=== PATIENT | male | born 1960 | race Caucasian/White ===

== ENCOUNTER 2021-03-22 15:17 | Outpatient (REF) | payer OTHER, SELFPAY ==
[2021-03-22 19:07] LABS: Hemoglobin A1C 5.9 % (<5.7)
[2021-03-22 19:32] LABS: ALT 22 U/L (16-63); AST 16 U/L (15-37); Alkaline Phosphatase 89 U/L (46-116); Anion Gap 9.8 mmol/L (3-11); BUN 15 mg/dL (7-18); Bilirubin, Total 0.7 mg/dL (0.2-1.0); CO2 26.2 mmol/L (21.0-32.0); Calcium 9.2 mg/dL (8.5-10.1); Calculated LDL 136 mg/dL (<100); Chloride 106 mmol/L (98-107); Cholesterol 197 mg/dL (<200); Glucose 114 mg/dL (74-106); HDL Cholesterol 38 mg/dL (40-60); Sodium 142 mmol/L (136-145); Total Protein 6.9 g/dL (6.4-8.2); Triglyceride 115 mg/dL (<150)
== END 2021-03-22 15:18 | disposition home or self-care (01) ==
LOC: LBN 15:17
PROVIDERS: PCP Nurse Practitioner Family; Visit Provider Nurse Practitioner Family
DX: Z00.00 Encounter for general adult medical examination without abnormal findings (principal); Z13.228 Encounter for screening for other metabolic disorders; Z13.1 Encounter for screening for diabetes mellitus; Z13.220 Encounter for screening for lipoid disorders
CPT/HCPCS: 80053; 80061; 83036

== ENCOUNTER 2022-05-01 04:03 | Outpatient (CLI) | payer OTHER, SELFPAY ==
[2022-05-01 17:15] LABS: Anion Gap 8.3 mmol/L (3-11); BUN 18 mg/dL (7-18); CO2 28.7 mmol/L (21.0-32.0); Calcium 9.2 mg/dL (8.5-10.1); Chloride 104 mmol/L (98-107); Glucose 117 mg/dL (74-106); Potassium 3.8 mmol/L (3.5-5.1); Sodium 141 mmol/L (136-145)
[2022-05-01 22:12] LABS: PSA, Screening 0.9 ng/mL (<=4.5)
== END 2022-05-01 04:04 | disposition home or self-care (01) ==
LOC: LBO 04:03
PROVIDERS: PCP Nurse Practitioner; Visit Provider Nurse Practitioner
DX: Z12.5 Encounter for screening for malignant neoplasm of prostate (principal); I10 Essential (primary) hypertension
CPT/HCPCS: 36415; 80048; 84153

== ENCOUNTER 2022-10-18 12:42 | Day surgery (SDC) | payer OTHER, SELFPAY ==
--- NOTE | 2022-10-18 11:21 | W.PM.DSUDISC ---
Date of service: 10/18/22 Time of Service: 14:45 Discharge Plan Disposition Patient Disposition: Home Condition: Good Discharge Details Reason For Visit: colonoscopy Attending Provider: Norberto Lopes Primary Care Provider: Tierra Soler Home Meds and New Rx's Prescriptions: Continued hydrochlorothiazide 12.5 mg tablet 12.5 mg PO DAILY Qty: 90 3RF lisinopril 40 mg tablet 40 mg PO DAILY Qty: 90 0RF Discharge Instructions Instructions: Diverticulosis (DC), Diverticulosis Diet (GEN) Additional Instructions: 1. If tolerated, consume a soft, low fiber diet for 1-2 days. 2[address] Do not drive, drink alcohol, operate machinery, make critical decisions, or do activities that require coordination or balance for 24 hours. 3. Because air was put into your colon during the procedure, expelling air from your rectum (passing gas or farting) is normal. 4. You may not have a bowel movement for 1-3 days because of the colonoscopy prep. This is normal. 5. Go directly to the emergency room if you notice any of the following: Develop chills (warm to touch), or if you have a thermometer and your temperature is above 101 Difficulty breathing or difficultly swallowing Persistent vomiting Severe abdominal pain, other than gas cramps Severe chest pain Black, tarry stools Any bleeding ? exceeding one tablespoon 6. Call your physician if the site where your intravenous was started becomes red, swollen, painful, and warm to touch. 7. Your physician has reviewed your pre-procedure medications. Please continue to take those medications as previously ordered. You will be given specific information/education regarding any changes to your medications before leaving. Activity:: Activity as Tolerated Diet:: As Tolerated Discharge Orders Discharge Orders: Discharge Order (Routine); Ordered 10/18/22 Ordered By: Norberto Lopes DS: Diagnosis Discharge Diagnosis (1) Screening for colon cancer: Status: Acute Asessment and Plan: De, your colonoscopy went just fine. You tolerated the procedure very well. You have some mild internal hemorrhoids. You also had some inflammation on your ileocecal valve. I do see this from time to time probably as a result of the bowel prep. I did perform some biopsies, and I will notify you when I have those results. In addition to that, you had a fair amount of sigmoid diverticulosis. This is a common finding in most patients your age. I would encourage you to have a high-fiber diet, stay well-hydrated, and try to avoid the symptoms of constipation
--- NOTE | 2022-10-18 11:22 | COLE_ITS ---
Date of service: 10/18/22 Time of Service: 14:46 Colonoscopy Report Date of procedure: 10/18/22 Pre-op diagnosis general: Screening colonoscopy Post-op diagnosis procedure note: other (Diverticulosis, inflammation of the ileocecal valve) Procedure: Colonoscopy With biopsy Surgeon: Norberto Lopes Anesthesia Type: General LMA/ETT Estimated blood loss (mL): 10 Pathology: other (Biopsies of the ileocecal valve) Complications: None Disposition: same day Indications: De is a 62-year-old male here for his first screening colonoscopy Prep: Miralax/Dulcolax Procedure Start Time: 14:16 Procedure End Time: 14:37 Retraction Time: 15 Findings: Mild to moderate sigmoid diverticulosis, inflammation of the ileocecal valve. Procedure Description: After the induction of monitored anesthetic care, and with the patient in left lateral decubitus position, I began by performing an external anorectal exam.? Perineum and skin were normal, as was the anal verge.? There was evidence of external hemorrhoids.? Next, I performed a digital rectal exam.? I did not appreciate any abnormal findings.? Next, I advanced a colonoscope into the rectal vault.? I performed retroflexion.? There were grade 1 internal hemorrhoids..? Using insufflation, I then advanced the colonoscope beyond the rectal folds and into the sigmoid colon before advancing towards the cecum.? There was sigmoid diverticulosis extending from approximately 20 cm to appr oximately 35 cm from the anal verge. The quality of the prep was excellent.? The scope was noted to be in the cecum by identification of the ileocecal valve and appendiceal orifice.? There was some inflammatory changes on the upper side of the ileocecal valve, immediately adjacent to the orifice of the terminal ileum. I performed some biopsies here. There was no discrete polyp. Based on the anatomy, I do not think that this could be elevated and completely excised endoscopically. I then began withdrawing the colonoscope using repeated irrigation as necessary for full evaluation of the colonic mucosa. ?Once the scope was withdrawn to the level of the rectum, great care was taken to examine portions of the rectal folds.? Finally, the scope was withdrawn and the patient was brought to the same-day surgery recovery unit as the anesthetic wore off. ?The findings and instructions were shared with the patient prior to discharge. No
[2022-10-18 12:56] VITALS: BP 116/82; PULSE 52; RESP 16; TEMP 36.8; O2SAT 100
[2022-10-18] MEDS: Lactated Ringers 1,000 ML 80 ML IV (13:25)
--- NOTE | 2022-10-18 13:41 | W.ANESPRE ---
General Info Date of Service Date Performed: 10/18/22 Height: 5 ft 10 in Weight: 70.307 kg Body Mass Index (BMI): 22.2 Surgical Procedure: Operation Date: 10/18/22 13:50 Proposed Procedure Side Surgeon p Colonoscopy Norberto Lopes MD Meds Allergies and Home Medications Allergies Allergy/AdvReac Type Severity Reaction Status Date / Time No Known Allergies Allergy Unverified 10/18/22 13:12 Home Medication Medication Instructions Recorded lisinopril 40 mg tablet 40 mg PO DAILY #90 tabs 06/18/22 hydrochlorothiazide 12.5 mg tablet 12.5 mg PO DAILY #90 tabs 07/10/22 Current Visit Medications: Current Medications Generic Name Dose Route Start Last Admin Trade Name Freq PRN Reason Stop Dose Admin Ringer's Solution 1,000 mls @ 80 mls/hr 10/18/22 06:00 10/18/22 13:25 IV 11/16/22 23:59 80 mls/hr INFUSION SYLVIE Administration IV Miscellaneous Supplies 1 each 10/18/22 06:00 Iv Access IV 11/16/22 23:59 DIRECTED SYLVIE Sodium Chloride 0 ml 10/18/22 06:00 Normal Saline Flush 10 Ml Syr IV 11/16/22 23:59 PRN PRN Sodium Chloride 0 ml 10/18/22 06:00 Normal Saline 10 Ml Vial IJ 11/16/22 23:59 DIRECTED PRN Sterile Water 0 ml 10/18/22 06:00 Water,Injection,Sterile 10 Ml Vial IJ 11/16/22 23:59 DIRECTED PRN PFSH Active Problems Active Problems: Problem Status Onset Code Screening for colon cancer Z12.11 Elevated blood pressure reading R03.0 Prediabetes R73.03 Family dysfunction Z63.9 Hypertension I10 COVID U07.1 Medical History Medical History Closed fracture of base of distal phalanx of finger (~11/16/05) Tendinopathy of right rotator cuff (~11/08/10) Tendonitis of left rotator cuff (~10/15/08) traumatic Surgical History Surgical History Hx of arthroscopic knee surgery S/P right inguinal herniorrhaphy (~07/22/08) With Marlex Mesh Tobacco Smoking/Tobacco Use Status: Current every day Tobacco Type: cigarettes Smoking cigarettes per day: 1 Passive smoking exposure: Yes Second hand exposure: Yes Alcohol Alcohol Intake: never Substance Use Substance use: Daily Substance use type: marijuana Details: last use of marijuana this am, 10/18/22 Vital Signs and Lab Results Vital Signs Most Recent Vital Signs in EMR: Most Recent Vital Signs Temp Pulse Resp BP Pulse Ox 36.8 C 52 L 16 116/82 100 10/18/22 12:56 10/18/22 12:56 10/18/22 12:56 10/18/22 12:56 10/18/22 12:56 Lab Results Blood Type / Crossmatch: No Data to Display Complete Blood Count: No Data to Display Complete Metabolic Panel: No Data to Display Liver Function Panel: No Data to Display Coagulation Panel: No Data to Display Cardiac Panel: No Data to Display Arterial Blood Gas: No Data to Display Venous Blood Gas: No Data to Display Pancreas Panel: No Data to Display Thyroid Panel: No Data to Display Infectious Disease: No Data to Display Blood Cultures: No Data to Display Toxicology Panel: No Data to Display Anesthesia Assessment and Plan Anesthesia History Personal History: No History of Anesthesia Complications Family History: No Family History of Anesthesia Complications Exercise Tolerance Exercise Tolerance: Metabolic Equivalents>4 Pertinent Negatives Pertinent Negatives: No Symptoms of GERD, No Major Cardiovascular Symptoms or Complaints, No Major Pulmonary Symptoms or Complaints and No History of CVA/TIA Cardiac & Pulmonary Exam Cardiac Exam: Normal S1/S2 Heart Sounds Pulmonary Exam: Clear Bilateral Breath Sounds Implantable Cardiac Device Does patient have a Pacemaker or an ICD?: No Airway Exam Known Difficult Airway: No Mallampati Class: 2 Mouth Opening: Normal (> 3cm) Thyromental Distance: Greater than 3 cm Neck Range of Motion: Full ROM Neck Circumference: Normal Teeth Condition: Normal Dentition ASA Classification ASA Score: ASA 2 Emergency Case?: No NPO Status NPO Status: NPO Clears >2 hours, Solids >8 hours Anesthesia Plan Resuscitation Status: Full Code Anesthesia Technique: General Anesthesia Airway Planned: Natural Airway Monitors Used: Standard Monitors
[2022-10-18 14:07] VITALS: BMI 22.2
--- NOTE | 2022-10-18 14:30 | BOWEL_PTH ---
PATIENT: De Reece LOC: [facility] U#:[id number] AGE/SX: 62/M ROOM: RE10/18/[address]: Norberto Lopes MD : 1960 BED: DIS: 10/18/2022 SPEC #: [id number] RECD: 10/18/22 18:23 STATUS: [place] REQ #: [id number] LILLIAN: 10/18/22 14:[address]: Norberto Lopes DEPT: Surgical Specimen RECD BY: Rose Quinteros ENTERED: 10/18/22 18:24 SP TYPE: Bowel OTHR DR: Tierra Soler, BENY Tissues: 1 - BIOPSY BOWEL Procedures: GROSS AND MICRO LEVEL 4 Comments: [id number]
[2022-10-18 14:43] VITALS: BP 111/72; PULSE 46; RESP 15; TEMP 36.5; O2SAT 97
[2022-10-18 15:00] VITALS: BP 115/76; PULSE 42; RESP 16; TEMP 36.7; O2SAT 99
--- NOTE | 2022-10-18 16:23 | W.ANESPOSTOP ---
Postoperative Evaluation Date, Time and Location Date Performed: 10/18/22 Time Performed: 15:05 Patient Location: Day Surgery Unit Vital Signs Most Recent Imported Vital Signs: Most Recent Vital Signs Temp Pulse Resp BP Pulse Ox 36.7 C 42 L 16 115/76 99 10/18/22 15:00 10/18/22 15:00 10/18/22 15:00 10/18/22 15:00 10/18/22 15:00 Pain Score Most Recent Pain Score: Most Recent Pain Score Pain Level 0 10/18/22 15:00 Assessment Mental Status: Awake (Alert & Oriented to Patient Baseline) Airway and Respiratory Function: Patent airway with normal (patient baseline) respiratory exam Cardiovascular Function: Hemodynamically Stable Hydration Status: Adequately Hydrated Nausea & Vomiting: No Nausea or Vomiting Pain: Pt. Denies Any Pain Peripheral Nerve Block: Patient did not receive a nerve block
== END 2022-10-18 12:43 | disposition home or self-care (01) ==
PROVIDERS: PCP Nurse Practitioner Family; Visit Provider Surgery
PROC: 0DJD8ZZ Inspection of Lower Intestinal Tract, Via Natural or Artificial Opening Endoscopic (ICD-10-PCS; CPT 45378; principal; 2022-10-18 13:45)
DX: Z12.11 Encounter for screening for malignant neoplasm of colon (principal); K57.30 Diverticulosis of large intestine without perforation or abscess without bleeding; K52.9 Noninfective gastroenteritis and colitis, unspecified; K63.89 Other specified diseases of intestine
CPT/HCPCS: 45380; 88305

== ENCOUNTER 2023-02-25 09:24 | Outpatient (CLI) | payer OTHER, SELFPAY ==
--- NOTE | 2023-02-25 09:15 | DI.RAD_ITS ---
Exam(s) XR KNEE RT 3V AP,LAT,VIKA EXAM: XR KNEE RT 3V AP,LAT,VIKA CLINICAL HISTORY: R knee pain. TECHNIQUE: 2D digital imaging was performed of the right knee. Three views obtained. AP, lateral an d PA tunnel views were obtained. COMPARISON: No exams were available for comparison FINDINGS: BONES: No acute fracture is present. No bony destructive lesion is seen. JOINTS: There is narrowing of the medial femoral tibial joint. Periarticular spurring is seen in the medial femoral tibial and patellofemoral joints. No joint effusion is seen. SOFT TISSUE: Normal. IMPRESSION: Mild degenerative changes of the right knee. DATA REPOSITORY: RADIATION DOSE DELIVERED:
== END 2023-02-25 09:25 | disposition home or self-care (01) ==
LOC: DIORS 09:25
PROVIDERS: PCP Nurse Practitioner Family; Referring Provider Nurse Practitioner Family; Visit Provider Physician Assistant
DX: M25.561 Pain in right knee (principal)
CPT/HCPCS: 73562

== ENCOUNTER 2023-05-31 16:58 | Emergency (ER) | payer OTHER, SELFPAY ==
[2023-05-31 17:25] VITALS: BP 139/88; PULSE 63; RESP 20; TEMP 37; O2SAT 97
--- NOTE | 2023-05-31 18:08 | W.ED.GENAD ---
Discharge Plan Disposition Patient Disposition: Home Condition: Stable Discharge Details Clinical Impression: Laceration of left hand Primary Care Provider: Tierra Soler ED Provider: Balta Gutierrez Home Meds and New Rx's Prescriptions: Continued hydrochlorothiazide 12.5 mg tablet 12.5 mg PO DAILY Qty: 90 3RF lisinopril 40 mg tablet 40 mg PO DAILY Qty: 90 3RF Discharge Instructions Instructions: Laceration (ED) Additional Instructions: the sutures should be removed in 7-10 days return to the emergency department sooner if signs of infection develop such as spreading redness or yellow/white discharge Medical Decision Making 63 yo male comes in with left pinky injury. He was holding a stone and it slipped and he pulled his hand back causing a left anterior laceration on the fat pad of the finger. No falls or other injuries. Has a 1.5cm laceration that runs vertically up the finger, full rom of the finger, no bony tenderness, intact sensation and cap refill. Given he did not have the finger get crushed and has no bony tenderness do not feel xrays indicated. will close with sutures. closed the wound without complications after irrigation, 3 sutures total, will have him return in 7-10 days for suture removal Differential Diagnosis Differential Diagnosis: laceration, abrasion HPI General Mode of arrival: ambulatory. Date/Time Provider Initiated Documentation: 05/31/23 17:13. Limitations to Documentation: no limitations. Information obtained by: patient. History of Present Illness 63 year old M presents to the emergency department with the chief complaint of left pinky injury, described as mild, Patient started experiencing this hour(s) (4) and it has been constant. No relieving factors improve symptom(s), No exacerbating factors reported . Patient notes no other symptoms.. Patient did receive the following treatments prior to arrival, none Related Data Home Medications Medication Instructions Recorded Confirmed hydrochlorothiazide 12.5 mg tablet 12.5 mg PO DAILY #90 tabs 07/10/22 05/31/23 lisinopril 40 mg tablet 40 mg PO DAILY #90 tabs 11/01/22 05/31/23 Previous Rx's Medication Instructions Recorded hydrochlorothiazide 12.5 mg tablet 12.5 mg PO DAILY #90 tabs 07/10/22 lisinopril 40 mg tablet 40 mg PO DAILY #90 tabs 11/01/22 Allergies Allergy/AdvReac Type Severity Reaction Status Date / Time No Known Allergies Allergy Unverified 04/30/23 15:39 General Stated Complaint: Orthopedic CARLA: 5 Review of Systems All systems reviewed & are unremarkable except as noted in HPI and below Constitutional Constitutional: Denies chills, Denies fever(s) and Denies weakness Cardiovascular Cardiovascular: Denies chest pain and Denies dyspnea Respiratory Respiratory: Denies cough and Denies dyspnea Gastrointestinal Gastrointestinal: Denies abdominal pain, Denies nausea and Denies vomiting Musculoskeletal Musculoskeletal: Denies joint swelling Neurologic Neurologic: Denies weakness PFSH All Active Problems (Updated 05/31/23 @ 18:42 by Balta Gutierrez MD) Laceration of left hand (Acute) Primary osteoarthritis of right knee (Acute) Prediabetes (Acute) Hypertension (Chronic) Medical History (Updated 05/31/23 @ 18:42 by Balta Gutierrez MD) Closed fracture of base of distal phalanx of finger (~11/16/05) COVID Family dysfunction Screening for colon cancer Tendinopathy of right rotator cuff (~11/08/10) Tendonitis of left rotator cuff (~10/15/08) traumatic Surgical History (Updated 11/01/22 @ 10:54 by Gemini Sargent RN) History of colonoscopy (~10/2022) Hx of arthroscopic knee surgery S/P right inguinal herniorrhaphy (~07/22/08) With Marlex Mesh Family History (Updated 01/25/21 @ 14:24 by Kiara Kunz) Mother , 87 No problems noted. Father , 90 No problems noted. Social History Smoking/Tobacco Use Status: Current-Occasional Tobacco Type: cigarettes Tobacco: How many years used: 10 Second Hand Exposure: Yes Smoking risk assessment performed?: Yes Alcohol Intake: never Drug use: Daily Substance use type: marijuana Details: last use of marijuana this am, 10/18/22 Caregiver/Support person: No Household members: spouse Housing: house Communication Needs: None Do you need help understanding health information?: Rarely Pets and animals: Yes Pets and animals: dog(s) Sexually active: Yes Do you think of yourself as: straight/heterosexual Current gender identity: male What is your relationship status?: How often do you talk on the phone with friends or family?: twice per week How often do you get together with friends or relatives?: twice per week Panel score (0-1 are the most socially isolated patients): 2 Duration: > 90 minutes/day Frequency: 3-4 times per week Shelbie/Latter Day: No preference Seatbelt use: sometimes Helmet use: Yes Helmet use: sometimes Drive intox or ride w/intox patrol driver: No Additional [facility] history[facility] Ex[facility] Const General: no acute distress Orientation: alert HENMT Head: normal to inspection Ears: external ears normal General nose exam: external nose normal Mouth: moist mucous membranes Eyes General: appearance normal, both eyes and all related structures Neck Neck: normal visual inspection Resp Effort & Inspection: normal respiratory effort and able to speak in complete sentences Cardio Rate: regular rate Skin General skin exam: no rashes or lesions noted Neuro General: patient alert and patient oriented x3 Extrem General: full ROM and capillary refill normal Psych Mental Status: mental status grossly normal Course Vital Signs Vital signs: Vital Signs Temperature 37 C 05/31/23 17:25 Pulse 63 05/31/23 17:25 Respiratory Rate 20 05/31/23 17:25 Blood Pressure 139/88 05/31/23 17:25 Pulse Oximetry 97 05/31/23 17:25 Temperature 37 C 05/31/23 17:25 Temperature Source Oral 05/31/23 17:25 Pulse 63 05/31/23 17:25 Respiratory Rate 20 05/31/23 17:25 Blood Pressure 139/88 05/31/23 17:25 Blood Pressure Position Sitting 05/31/23 17:25 Pulse Oximetry 97 05/31/23 17:25 Oxygen Delivery Method Room Air 05/31/23 17:25 Oxygen Flow Rate 0 05/31/23 17:25 Procedures Laceration Laceration 1: Site: hand Side (If applicable): left Size (cm): 1.5 Description: stellate Depth: simple, single layer Local Anesthetic: Lidocaine 2% Amount of anesthesia used (mL): 6 (ring block) Pre-repair: wound explored and irrigated extensively Skin layer closed with: nylon Size (cm): 6-0 Number of sutures: 3 Technique: simple, interrupted
== END 2023-05-31 19:03 | disposition home or self-care (01) ==
PROVIDERS: Emergency Provider Emergency Medicine; PCP Nurse Practitioner Family
DX: S61.412A Laceration without foreign body of left hand, initial encounter (principal); W20.8XXA Other cause of strike by thrown, projected or falling object, initial encounter
CPT/HCPCS: 12001; 29130; 99283

== ENCOUNTER 2023-10-25 01:44 | Outpatient (CLI) | payer OTHER, SELFPAY ==
[2023-10-25 08:53] LABS: HCT 46.3 % (40.0-50.0); HGB 15.4 g/dL (13.5-17.5); MCH 29.7 pg (27.0-33.0); MCHC 33.3 % (32.0-36.0); MCV 89 fL (80-95); Platelet Count 271 10^3/uL (130-400); RBC 5.18 10^6/uL (4.36-5.78); RDW 13.4 % (11.8-14.1); RDW-SD 44.5 fL; WBC 10.26 10^3/uL (4.4-10.8)
[2023-10-25 08:55] LABS: Hemoglobin A1C 5.7 % (<5.7)
[2023-10-25 09:02] LABS: Anion Gap 7.6 mmol/L (3-11); BUN 19 mg/dL (7-18); CO2 29.4 mmol/L (21.0-32.0); CREATININE 1.1 mg/dL (0.70-1.30); Calcium 9.1 mg/dL (8.5-10.1); Calculated LDL 114 mg/dL (<100); Chloride 102 mmol/L (98-107); Cholesterol 170 mg/dL (<200); Glucose 114 mg/dL (74-106); HDL Cholesterol 39 mg/dL (40-60); Potassium 3.9 mmol/L (3.5-5.1); Sodium 139 mmol/L (136-145); Triglyceride 86 mg/dL (<150)
== END 2023-10-25 01:45 | disposition home or self-care (01) ==
LOC: LBO 01:44
PROVIDERS: PCP Nurse Practitioner Family; Visit Provider Nurse Practitioner Family
DX: I10 Essential (primary) hypertension (principal); M17.11 Unilateral primary osteoarthritis, right knee; R73.03 Prediabetes; Z00.00 Encounter for general adult medical examination without abnormal findings
CPT/HCPCS: 36415; 80048; 80061; 85027; 83036

== ENCOUNTER 2023-11-03 10:08 | Emergency (ER) | payer OTHER, SELFPAY ==
[2023-11-03] VITALS (7 sets, daily range): BP systolic 134–135; BP diastolic 87–109; PULSE 68–95; RESP 14–21; TEMP 37.3; O2SAT 97–100
--- NOTE | 2023-11-03 10:30 | RT.EKG_ITS ---
APPROVED REPORT Exam: Resting ECG Reason for Exam: Chest Pain Patient Location: E HR:72 bpm ECG Measurements Heart Rate 72 AXIS KS 181 P 30 QRSd 111 QRS -28 QT 394 T 17 QTc 431 Conclusion Sinus rhythm normal axis non specific ST changes V1- V3 no priors for comparison
--- NOTE | 2023-11-03 11:08 | NUR.NOTE ---
pt had x3 syncopal episodes after discussing with PA potential for draining infected area in mouth. EKG and finger stick obtained. upon awakening, pt refusing lab draw and IV placement. Pt mentating appropriately. PA made aware of pts refusal.
--- NOTE | 2023-11-03 12:35 | ED.GENADUL_ITS ---
HPI General Date/Time Provider Initiated Documentation: 11/03/23 10:25 . HPI Narrative: This 63-year-old male presents with report of left upper dental pain with facial swelling. Denies any difficulty swallowing. States he cracked a tooth several weeks ago and yesterday started becoming red and swollen. Denies any fever or chills. He has pain with opening his jaw. He denies any chest pain or shortness of breath. Has not been on antibiotics reportedly. Related Data Home Medications Medication Instructions Recorded Confirmed lisinopril 40 mg tablet 40 mg PO DAILY #90 tabs 11/01/22 11/03/23 hydrochlorothiazide 12.5 mg tablet 12.5 mg PO DAILY #90 tabs 08/05/23 11/03/23 clindamycin HCl 150 mg capsule 150 mg PO TID #90 caps 11/03/23 Previous Rx's Medication Instructions Recorded lisinopril 40 mg tablet 40 mg PO DAILY #90 tabs 11/01/22 hydrochlorothiazide 12.5 mg tablet 12.5 mg PO DAILY #90 tabs 08/05/23 clindamycin HCl 150 mg capsule 150 mg PO TID #90 caps 11/03/23 Allergies Allergy/AdvReac Type Severity Reaction Status Date / Time No Known Allergies Allergy Unverified 11/03/23 10:14 General Stated Complaint: DentalOral CARLA: 3 Course Vital Signs Vital signs: Vital Signs Temperature 37.3 C 11/03/23 10:11 Pulse 95 H 11/03/23 10:11 Respiratory Rate 16 11/03/23 10:11 Blood Pressure 135/109 H 11/03/23 10:11 Pulse Oximetry 97 11/03/23 10:11 Temperature 37.3 C 11/03/23 10:26 Pulse 68 11/03/23 11:00 Pulse 68 11/03/23 11:01 Respiratory Rate 17 11/03/23 11:01 Respiratory Effort Normal, Non-Labored 11/03/23 10:15 Blood Pressure 135/87 11/03/23 11:00 Blood Pressure Mean 104 11/03/23 11:00 Pulse Oximetry 98 11/03/23 11:01 Oxygen Delivery Method Room Air 11/03/23 10:26 Oxygen Flow Rate 0 11/03/23 10:26 Pain Level 4 11/03/23 10:26 Medical Decision Making This 63-year-old male presents with dental abscess, facial swelling with dental fracture with adjacent abscess noted to tooth #15, maxillary swelling and induration, fluctuant abscess adjacent to fractured tooth Recommendation for incision and drainage, patient has declined, he became diaphoretic and stated that he was going to pass out secondary to anxiety over having incision and drainage Spoke with his who is a nurse and we discussed recommendation to perform incision and drainage to the antibiotics can be more effective, and she states that likely he will be able to handle the procedure without her availability She is unavailable to be in the emergency department secondary to childcare issues at this time Patient had 2 subsequent episodes of syncope with hypotension immediately following and EKG and glucose were obtained, EKG has been inferior lateral abnormalities, recommendation for repeat EKG, diagnostic blood work, troponin, and telemetry monitoring Patient is adamantly refusing, he is fully alert, oriented, of decisional capacity I spoke with his who has arranged transportation home as I do not feel patient can operate his vehicle He is encouraged to call the dentist tomorrow and return here for incision and drainage Clindamycin was applied He is aware that he is at risk for multiple pathologies and he is leaving against our medical recommendation, he is aware of the risk associated with decision including that of , I did discuss the recommendations with his prior to patient being discharged Patient is alert, oriented, of decisional capacity and ambulatory with steady gait at time of discharge home Quality:SDOH Health Related Social Needs: No Data to Display PFSH All Active Problems (Updated 11/03/23 @ 11:22 by AVERY Albarran) Dental abscess (Acute) Syncope and collapse (Acute) Primary osteoarthritis of right knee (Acute) Prediabetes (Acute) Hypertension (Chronic) Medical History (Updated 11/03/23 @ 11:22 by VAERY Albarran) Screening for colon cancer COVID Family dysfunction Tendonitis of left rotator cuff (~10/15/08) traumatic Tendinopathy of right rotator cuff (~11/08/10) Closed fracture of base of distal phalanx of finger (~11/16/05) Surgical History (Updated 11/01/22 @ 10:54 by Gemini Sargent RN) History of colonoscopy (~10/2022) Hx of arthroscopic knee surgery S/P right inguinal herniorrhaphy (~07/22/08) With Marlex Mesh Family History (Updated 01/25/21 @ 14:24 by Kiara Kunz) Mother , 87 No problems noted. Father , 90 No problems noted. Social History Smoking/Tobacco Use Status: Former Tobacco Use Tobacco: How many years used: 10 Second Hand Exposure: Yes Smoking risk assessment performed?: Yes Alcohol Intake: never Drug use: Daily Substance use type: marijuana Caregiver/Support person: No Household members: spouse Housing: house Communication Needs: None Do you need help understanding health information?: Rarely Pets and animals: Yes Pets and animals: dog(s) Sexually active: Yes Do you think of yourself as: straight/heterosexual Current gender identity: male What is your relationship status?: How often do you talk on the phone with friends or family?: twice per week How often do you get together with friends or relatives?: twice per week Panel score (0-1 are the most socially isolated patients): 2 Duration: > 90 minutes/day Frequency: 3-4 times per week Shelbie/Lutheran: No preference Seatbelt use: sometimes Helmet use: Yes Helmet use: sometimes Drive intox or ride w/intox patient transportation driver: No Do you feel safe at home: Yes Do you feel safe in your relationship?: Yes PAWSS Have you Been Recently Intoxicated or Drunk Within the Last 30 days?: No Have you Ever Experienced Previous Episodes of Alcohol Withdrawal?: No Have you ever Experienced Withdrawal Seizures?: No Have you ever Experienced Delirium Tremens(DT)s?: No Have you ever undergone Alcohol Rehabilitation Treatment (i.e, inpt ot outpatient treatment programs)?: No Have you ever Experienced Blackouts?: No Have you ever Combined Alcohol with other Downers within the last 90 days?: No Have you ever Combined Alcohol with any other Substance of Abuse during the last 90 days?: No Result: 0 Discharge Plan Disposition Patient Disposition: Against Medical Advice Discharge Details Clinical Impression: Syncope and collapse, Dental abscess Primary Care Provider: Tierra Soler ED Provider: Rose Flores Home Meds and New Rx's Prescriptions: New clindamycin HCl 150 mg capsule 150 mg PO TID Qty: 90 0RF Continued lisinopril 40 mg tablet 40 mg PO DAILY Qty: 90 3RF hydrochlorothiazide 12.5 mg tablet 12.5 mg PO DAILY Qty: 90 3RF Discharge Instructions Instructions: Dental Abscess (ED), Syncope (ED) Additional Instructions: Take antibiotic as prescribed Yogurt daily while on the antibiotic You are leaving against our medical recommendation, you have had several fainting episodes and have an abnormal EKG, you have declined evaluation for these findings I also have recommended drainage of your abscess, I will supply antibiotics, I r ecommend outpatient follow-up with a dentist soon as possible and reevaluation for your fainting episodes and abnormal ekg Referrals: Tierra Soler NP [Primary Care Provider] -
== END 2023-11-03 11:35 | disposition left against medical advice (07) ==
PROVIDERS: Emergency Provider Physician Assistant; PCP Nurse Practitioner Family
DX: K03.81 Cracked tooth (principal); K04.7 Periapical abscess without sinus; R55 Syncope and collapse; I10 Essential (primary) hypertension; Z87.891 Personal history of nicotine dependence; Z53.29 Procedure and treatment not carried out because of patient's decision for other reasons
CPT/HCPCS: 80048; 82962; 93005; 96360; 99284; 83735; 84443; 84484; 85025; 93010; 99283

== ENCOUNTER 2023-11-07 08:16 | Outpatient (CLI) | payer OTHER, SELFPAY ==
--- NOTE | 2023-11-07 08:15 | RT.EKG_ITS ---
APPROVED REPORT Exam: Resting ECG Reason for Exam: ED f/u Patient Location: O HR:74 bpm ECG Measurements Heart Rate 74 AXIS WI 177 P 40 QRSd 107 QRS -35 QT 387 T 44 QTc 430 Conclusion Sinus rhythm...normal P axis, V-rate 50- 99 Left axis deviation...QRS axis (-30,-90) RSR' in V1 or V2, probably normal variant...small R' only Borderline ST elevation, anterior leads...ST >0.15mV in V1-V4 I have reviewed and interpreted ECG and agree with software generated interpretation.
== END 2023-11-07 08:17 | disposition home or self-care (01) ==
LOC: DI.CM 08:22
PROVIDERS: PCP Nurse Practitioner Family; Visit Provider Nurse Practitioner Family
DX: R94.31 Abnormal electrocardiogram [ECG] [EKG] (principal)
CPT/HCPCS: 93010

== ENCOUNTER → 2023-11-12 01:09 | Outpatient (CLI) | payer OTHER, SELFPAY ==
--- NOTE | 2023-11-12 06:15 | ETT_ITS ---
APPROVED REPORT Exam: Exercise Treadmill Patient Location: Out-Patient Room/Bed: Stress Nurse: Iza Pena RN Ordering Provider:SHIRLEY WAITE, Contact Number: [phone] BMI: 24.38 Baseline Rhythm: Sinus Bradycardia Indications: Syncope, abnormal EKG Medical History Medical History: HTN, syncope/collapse, prediabetes Cardiac Medications: Hydrochlorothiazide, lisinopril Allergies: NKA Cardiac Risk Factors: Family hx, HTN, prediabetes, former smoker Previous Cardiac Procedures: None Pretest Chest Pain Characteristics: None Exercise History: Indeterminate Physical Disabilities: None Lung Sounds: Clear to auscultation Heart Sounds: Bradycardia Stress Test Details Test: Exercise stress testing was performed using a Steven protocol. Rest Stress HR Resting HR Supine: 49 bpm Max Heart Rate (APMHR): 158 bpm Resting HR Standin bpm Target HR (85% APMHR): 134 bpm Max HR Achieved: 120 bpm % of APMHR: 76 Recovery HR: 60 bpm HR response to stress: Blunted HR response to stress BP Resting BP Supine: 118/68 mmHg Resting BP Standin/78 mmHg Max BP: 180/84 mmHg Recovery BP: 112/70 mmHg BP response to stress: Normal blood pressure response to stress. ECG Resting ECG: Sinus Bradycardia Ectopy: None Stress ECG: Sinus Rhythm ST Change: Nondiagnostic resting ST abnormalities, Nondiagnostic low heart rate Lead(s): V2 Arrhythmia: None Recovery ECG: Sinus Rhythm Recovery ST Change: Nondiagnostic resting ST abnormalities, Nondiagnostic low heart rate Lead(s): V2 Clinical Reason for Termination: Fatigue Stress Symptoms: General Fatigue Exercise duration: 10 min40 sec Highest Stage Reached: Stage 4: 4.2 mph at 16% grade. Exercise capacity: 12.89 METs Angina Score: None Penn Treadmill Score: 10.4 Rate Pressure Product: 88225 Stress ECG Conclusion 1. Normal clinical response with good exercise capacity, acheiving 13 METS at 76% maximum predicted H R 2. Normal ECG response 3. Moderate hypertensive response 4. Negative for inducible ischemia. Penn Treadmill Score is 10.4 which is Low risk. Stress Test Summary STAGE Time (mins) Speed (mph) Grade (%) HR BP SpO2 SYMPTOMS METS Supine 49 118/68 98 Standing 65 114/78 1 3 1.7 10 80 120/62 98 4.5 2 6 2.5 12 83 7 3 9 3.4 14 102 10 4 12 4.2 16 117 13 1 min recovery 94 180/84 98 3 min recovery 74 160/72 6 min recovery 68 134/82 9 min recovery 60 112/70 98 Unable to reach target HR due to fatigue and blunted HR respone.
== END ==
PROVIDERS: PCP Nurse Practitioner Family; Visit Provider Nurse Practitioner Family
DX: R94.31 Abnormal electrocardiogram [ECG] [EKG]; R55 Syncope and collapse
CPT/HCPCS: 93017

== ENCOUNTER → 2023-12-13 00:08 | Outpatient (CLI) | payer OTHER, SELFPAY ==
--- NOTE | 2023-12-13 07:30 | DI.US_ITS ---
APPROVED REPORT EXAM: Comprehensive 2D, Doppler, and color-flow Echocardiogram Patient Location: Out-Patient Arresting Gear Operator: Hernan Peterson RDCS (AE) Indications: Syncope, abnormal EKG Conclusion Normal left ventricular wall thickness and chamber size. EF is 60 to 65%. Wall motion is normal Normal right ventricular size and function Both atria are normal in size. The atrial septum is thin and hypermobile There is no structural or hemodynamically valvular disease Estimated right ventricular systolic pressure is 28 mmHg Wall motion Left Ventricle The left ventricle is normal size. The left ventricular systolic function is normal. The left ventric ular ejection fraction is within the normal range. There is normal left ventricular wall thickness. T here is normal LV segmental wall motion. There is no ventricular septal defect visualized. LVEF is 60 -64%. Right Ventricle The right ventricle is normal size. The right ventricular systolic function is normal. Atria The left atrium size is normal. The right atrium size is normal. Atrial septal aneurysm is present wi thout PFO. Aortic Valve The aortic valve is normal in structure. Aortic valve is trileaflet. There is no aortic valvular sten osis. No aortic regurgitation is present. Mitral Valve The mitral valve is normal in structure. No evidence of mitral valve stenosis. Trace mitral regurgita tion. Tricuspid Valve The tricuspid valve is normal in structure. There is no tricuspid valve stenosis. Trace tricuspid reg urgitation. The RVSP is 27.8 mmHg. Pulmonic Valve The pulmonary valve is normal in structure. There is no pulmonic valvular stenosis. There is no pulmo gui valvular regurgitation. Great Vessels The aortic root is normal in size. The ascending aorta is normal in size. Aortic arch is not well vis ualized. IVC is normal in size and collapses >50% with inspiration. Pericardium There is no pericardial effusion. 2D Dimensions IVSD d PLAX 0.67 cm M: 0.6-1.2 Ao Root d 3.76 cm M: 3.1 - 3.7 LVPW d PLAX 0.67 cm M: 0.6 - 1.2 Ao Asc Diam d 3.39 cm M: 2.6 - 3.4 LVID d PLAX 5.69 cm M: 4.2 - 5.8 LVDs 3.69 cm M: 2.5 - 4.0 LV EF Teichholz 63.8 % FS 35.14 % LV EDV (Teich) 159.4 mL LV ESV (Teich) 57.8 mL Stroke Vol Index (Teich) 58.40 M-Mode TAPSE 1.98 cm (M/F) >1.7 Auto EF LV EDV A4C 158.1 mL LV EDV A2C 131.9 mL LV EDV BP 145.9 mL LV ESV A4C 63.8 mL LV ESV A2C 52.2 mL LV ESV BP 57.8 mL LVEF(%) A4C 59.6 % LVEF(%) A2C 60.5 % LVEF(%) BP 60.3 % LV SV A4C 94.3 ml LV SV A2C 79.7 ml LV SV BP 88.0 ml LV CO A4C 6.1 L/min LV CO A2C 5.8 L/min LV CO BP 6.0 L/min HR A4C 64.98 BPM HR A2C 73.32 BPM LV EDV Index (BP) LA Volume LA Length A4C 4.9 cm LA Length A2C 5.8 cm LA Area A4C s 11.80 cm2 LA Area A2C s 19.18 cm2 LA Vol A4C A-L 24.15 mL LA Vol A2C A-L 53.74 mL LA Vol Biplane A-L 39.3 mL LA Vol/BSA A4C A-L LA Vol/BSA A2C A-L LA Vol/BSA BP A-L 22.6 mL/m2 LA Vol A4C MOD 22.6 mL LA Vol A2C MOD 50.5 mL LA Vol BP MOD 36.5 mL RA Volume RA Area A4C 18.5 cm2 RA ESV A4C (A-L) 58.9mL RA Vol/BSA A4C A-L RA Length A4C 5.0 cm RA ESV A4C (MOD) 55.9mL LV Diastology MV E' medial 0.077 (>0.07 m/s) MV E Vmax 0.49 (0.4-1.3 m/s) MV E/E' MED 6.41 (<14) MV A Vmax 0.80 (0.4-1.3 m/s) MV E' lateral 0.082 (>0.1 m/s) E/A Ratio 0.6 MV E/E' LAT 5.99 (<14) MV E' Average 0.080 m/s MV E/E'(average) 6.19 Aortic Valve AoV Vmax 1.26 m/s LVOT Vmax 1.05 m/s AoV Peak Grad 6.4 mmHg LVOT Peak Grad 4.4 mmHg AoV Area (Vmax) 2.60 cm2 LVOT VTI 0.164 m AoV VTI 0.266 m LVOT Mean Grad 2.1 mmHg AoV Mean Eric. 0.91 m/s LVOT SV 51.47 mL AoV Mean Grad 3.7 mmHg LVOT Diam s 1.95 cm AoV Area (VTI) 1.93 cm2 Velocity Ratio 0.83 Mitral Valve MV DT 244 (160-240 msec) Pulmonary Valve PV Vmax 1.02 (0.5-1.5 m/s) RVOT Vmax 0.55 m/s PV Peak Grad 4.2 mmHg RVOT Peak Gr. 1.2 mmHg PV Mean Eric 0.61 m/s RVOT VTI 0.115 m PV Mean Grad 1.8 mmHg RVOT Mean Gr. 0.7 mmHg Tricuspid Valve RA Pressure 3.00 mmHg TR Vmax 2.49 m/s TR Peak Grad 24.7 mmHg RVSP (TR) 27.8 mmHg
== END ==
PROVIDERS: PCP Nurse Practitioner Family; Visit Provider Nurse Practitioner Family
DX: R55 Syncope and collapse (principal); R94.31 Abnormal electrocardiogram [ECG] [EKG]
CPT/HCPCS: 93306